=== PATIENT | female | born 1990 | race Caucasian/White ===

== ENCOUNTER 2018-02-08 01:37 | Emergency (ER) | payer SELFPAY ==
[2018-02-08 01:45] VITALS: BP 114/68
--- NOTE | 2018-02-08 02:23 | EDM.PDOC ---
ED HPI GENERAL MEDICAL PROBLEM - General Chief Complaint: General Stated Complaint: sore throat, headache, weakness, fatigue Time Seen by Provider: 02/08/18 02:10 Source of Information: Reports: Patient History Limitations: Reports: No Limitations - History of Present Illness INITIAL COMMENTS - FREE TEXT/NARRATIVE: Patient is a 27-year-old female who is seen in the emergency room with chief complaint of sore throat and diarrhea patient has had diarrhea for a while states that it came with the flu lasted about 2 weeks now her main complaint is sore throat and feeling weak with a headache Onset: Gradual Duration: Week(s):, Waxing/Waning Location: Reports: Head, Face, Neck Quality: Reports: Ache, Pressure Severity: Mild Improves with: Reports: 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, Rest Worsens with: Reports: Movement Context: Reports: Other (6) 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, 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 throat Pain Score (Numeric/FACES): 6 - Related Data Allergies Allergy/AdvReac Type Severity Reaction Status Date / Time No Known Allergies Allergy Verified 02/08/18 01:45 Home Meds: Home Meds Multivitamin [Multivitamins] 1 each PO DAILY 02/08/18 [History] 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 (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 Below) Other OB/BYN History: D and C 2009 - Past Surgical History HEENT Surgical History: Reports: Tonsillectomy Social & Family History - Tobacco Use Smoking Status *Q: Current Every Day Smoker Years of Tobacco use: 16 Packs/Tins Daily: 1 Used Tobacco, but Quit: No - Caffeine Use Caffeine Use: Reports: Coffee, Soda - Alcohol Use Days Per Week of Alcohol Use: 3 Number of Drinks Per Day: 5 Total Drinks Per Week: 15 - Recreational Drug Use Recreational Drug Use: No - Living Situation & Occupation Living situation: Reports: , with Family Occupation: Employed ED ROS GENERAL - Review of Systems Review Of Systems: See Below Constitutional: Reports: No Symptoms HEENT: Reports: No Symptoms Respiratory: Reports: No Symptoms, Cough Cardiovascular: Reports: No Symptoms Endocrine: Reports: No Symptoms GI/Abdominal: Reports: No Symptoms : Reports: No Symptoms Musculoskeletal: Reports: No Symptoms Skin: Reports: No Symptoms Neurological: Reports: No Symptoms Psychiatric: Reports: No Symptoms Hematologic/Lymphatic: Reports: No Symptoms Immunologic: Reports: No Symptoms ED EXAM, GENERAL - Physical Exam Exam: See Below Exam Limited By: No Limitations General Appearance: Alert, WD/WN, No Apparent Distress Ears: Normal External Exam, Normal Canal, Hearing Grossly Normal, Normal TMs Ear Exam: Bilateral Ear: Auricle Normal, Canal Normal, TM normal Nose: Normal Inspection, Normal Mucosa, No Blood Throat/Mouth: Normal Inspection, Normal Lips, Normal Teeth, Normal Gums, Normal Oropharynx, Normal Voice, No Airway Compromise Head: Atraumatic, Normocephalic Neck: Normal Inspection, Supple, Non-Tender, Full Range of Motion Respiratory/Chest: No Respiratory Distress, No Accessory Muscle Use, Decreased Breath Sounds, Wheezing, Prolonged Expiration Cardiovascular: Normal Peripheral Pulses, Regular Rate, Rhythm, No Edema, No Gallop, No JVD, No Murmur, No Rub GI/Abdominal: Normal Bowel Sounds, Soft, Non-Tender, No Organomegaly, No Distention, No Abnormal Bruit, No Mass (Female) Exam: Deferred Rectal (Female) Exam: Deferred Back Exam: Normal Inspection, Full Range of Motion, NT Extremities: Normal Inspection, Normal Range of Motion, Non-Tender, Normal Capillary Refill, No Pedal Edema Neurological: Alert, Oriented, CN II-XII Intact, Normal Cognition, Normal Gait, Normal Reflexes, No Motor/Sensory Deficits Psychiatric: Normal Affect, Normal Mood Course - Vital Signs Last Recorded V/S: Last Vital Signs Temp 97.8 F 02/08/18 01:40 Pulse 85 02/08/18 01:40 Resp 16 02/08/18 01:40 BP 114/68 02/08/18 01:40 Pulse Ox 99 02/08/18 01:40 - Orders/Labs/Meds Orders: Active Orders 24 hr Category Date Time Status RT Aerosol Therapy [RC] ASDIRECTED Care 02/08/18 02:29 Active CULTURE STREP A CONFIRMATION [] Stat Lab 02/08/18 01:56 Results STREP SCRN A RAPID W CULT CONF [] Stat Lab 02/08/18 01:56 Ordered Labs: Laboratory Tests 02/08/18 02/08/18 Range/Units 02:05 02:05 WBC 10.0 (4.0-10.2) K/uL RBC 3.97 (3.77-5.09) M/uL Hgb 11.7 (11.7-15.5) g/dL Hct 36.9 (34.0-46.0) % MCV 92.9 (84.0-98.0) fL MCH 29.5 (28.2-33.3) pg MCHC 31.7 (31.7-36.0) g/dL RDW 13.0 (11.2-14.1) % Plt Count 262 (150-350) K/uL Neut % (Auto) 57.7 (45.0-80.0) % Lymph % (Auto) 34.8 (10.0-50.0) % Price % (Auto) 6.8 (2.0-14.0) % Eos % (Auto) 0.4 (0.0-5.0) % Baso % (Auto) 0.3 (0.0-2.0) % Neut # (Auto) 5.74 (1.40-7.00) K/uL Lymph # (Auto) 3.47 (0.50-3.50) K/uL Price # (Auto) 0.68 (0.00-1.00) K/uL Eos # (Auto) 0.04 (0.00-0.50) K/uL Baso # (Auto) 0.03 (0.00-0.20) K/uL Sodium 141 (136-145) mmol/L Potassium 3.8 (3.5-5.1) mmol/L Chloride 105 (98-107) mmol/L Carbon Dioxide 27.6 (21.0-32.0) mmol/L BUN 9 (7-18) mg/dL Creatinine 0.73 (0.51-1.17) mg/dL Est Cr Clr Drug Dosing 100.84 mL/min Estimated GFR (MDRD) > 60 mL/min Glucose 106 (74-106) mg/dL Calcium 8.5 (8.5-10.1) mg/dL Meds: Medications Discontinued Medications Generic Name Dose Route Start Last Admin Trade Name Freq PRN Reason Stop Dose Admin Albuterol/Ipratropium 3 ml 02/08/18 02:28 02/08/18 02:38 Duoneb 3.0-0.5 Mg/3 Ml NEB 02/08/18 02:29 3 ml ONETIME ONE Administration Departure - Departure Time of Disposition: 02:32 Disposition: Home, Self-Care 01 Condition: Fair Clinical Impression: Bronchitis, Asthma - Discharge Information Instructions: Azithromycin tablets, Albuterol; Ipratropium solution for inhalation Referrals: Jeanine Villasenor [employer]CHO[employer] TECHNICIAN [Primary Care Provider] - Forms: ED Department Discharge Care Plan Goals: Patient will be started on Combivent 2 puffs every 6 hours plus Zithromax 500 mg once a day for 3 days patient will return to work on the - My Orders Last 24 Hours: My Active Orders 02/08/18 01:56 CULTURE STREP A CONFIRMATION [RM] Stat STREP SCRN A RAPID W CULT CONF [RM] Stat 02/08/18 02:29 RT Aerosol Therapy [RC] ASDIRECTED - Assessment/Plan Last 24 Hours: My Active Orders 02/08/18 01:56 CULTURE STREP A CONFIRMATION [RM] Stat STREP SCRN A RAPID W CULT CONF [RM] Stat 02/08/18 02:29 RT Aerosol Therapy [RC] ASDIRECTED
[2018-02-08 02:24] LABS: CHLORIDE,CL 105 mmol/L (98-107); SODIUM,NA 141 mmol/L (136-145)
[2018-02-08] MEDS ORDERED: Albuterol/Ipratropium 3.0-0.5 MG/3 ML Neb Soln NEB ONE (02:28)
== END 2018-02-08 03:00 | disposition home or self-care (01) ==
LOC: LL.ED 01:37
DX: J45.909 Unspecified asthma, uncomplicated (principal); F17.210 Nicotine dependence, cigarettes, uncomplicated
CPT/HCPCS: 36415; 80048; 85025; 87081; 87430; 99283

== ENCOUNTER 2018-11-15 23:09 | Emergency (ER) | payer BC, OTHER ==
[2018-11-15 23:19] VITALS: BP 118/71
--- NOTE | 2018-11-16 | EDM.PDOC ---
ED HPI GENERAL MEDICAL PROBLEM - General Chief Complaint: General Stated Complaint: rt rib pain, sob Time Seen by Provider: 11/15/18 23:20 Source of Information: Reports: Patient History Limitations: Reports: No Limitations - History of Present Illness INITIAL COMMENTS - FREE TEXT/NARRATIVE: Patient is a 28-year-old female who is seen in the ER with chief complaint of right lower lip. 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 - Past Surgical History HEENT Surgical History: Reports: Tonsillectomy Social & Family History - Caffeine Use Caffeine Use: Reports: Coffee, Soda - Living Situation & Occupation Living situation: Reports: , with Family Occupation: Employed ED ROS GENERAL - Review of Systems Review Of Systems: See Below Constitutional: Reports: No Symptoms HEENT: Reports: No Symptoms Respiratory: Reports: Other (Pain with movement) Cardiovascular: Reports: No Symptoms Endocrine: Reports: No Symptoms GI/Abdominal: Reports: No Symptoms : Reports: No Symptoms Musculoskeletal: Reports: No Symptoms Skin: Reports: No Symptoms Neurological: Reports: No Symptoms Psychiatric: Reports: No Symptoms ED EXAM, GENERAL - Physical Exam Exam: See Below Exam Limited By: No Limitations General Appearance: Alert, WD/WN, No Apparent Distress Ears: Normal External Exam, Normal Canal, Hearing Grossly Normal, Normal TMs Nose: Normal Inspection, Normal Mucosa, No Blood Throat/Mouth: Normal Inspection, Normal Lips, Normal Teeth, Normal Gums, Normal Oropharynx, Normal Voice, No Airway Compromise Head: Atraumatic, Normocephalic Neck: Normal Inspection, Supple, Non-Tender, Full Range of Motion Respiratory/Chest: No Respiratory Distress, Other Cardiovascular: Normal Peripheral Pulses (Tenderness with movement), Regular Rate, Rhythm, No Edema, No Gallop, No JVD, No Murmur, No Rub GI/Abdominal: Normal Bowel Sounds, Soft, Non-Tender, No Organomegaly, No Distention, No Abnormal Bruit, No Mass (Female) Exam: Normal External Exam, Deferred Rectal (Female) Exam: Deferred Back Exam: Normal Inspection, Full Range of Motion, NT Extremities: Normal Inspection, Normal Range of Motion, Non-Tender, Normal Capillary Refill, No Pedal Edema Neurological: Alert, Oriented, CN II-XII Intact, Normal Cognition, Normal Gait, Normal Reflexes, No Motor/Sensory Deficits Psychiatric: Normal Affect, Normal Mood Skin Exam: Warm, Dry, Intact, Normal Color, No Rash Lymphatic: No Adenopathy Course - Vital Signs Last Recorded V/S: Last Vital Signs Temp 98.8 F 11/15/18 23:15 Pulse 87 11/15/18 23:15 Resp 20 11/15/18 23:15 BP 118/71 11/15/18 23:15 Pulse Ox 98 11/15/18 23:15 - Orders/Labs/Meds Orders: Active Orders 24 hr Category Date Time Status Ribs 2V w Chest Rt [CR] Stat Exams 11/15/18 23:32 Taken Departure - Departure Time of Disposition: 00:22 Disposition: Home, Self-Care 01 Clinical Impression: Chest wall pain - Discharge Information *PRESCRIPTION DRUG MONITORING PROGRAM REVIEWED*: No *COPY OF PRESCRIPTION DRUG MONITORING REPORT IN PATIENT MARI: No Instructions: Cyclobenzaprine tablets, Muscle Strain, [id number], Ketorolac tablets Referrals: Taty Marsh PA-C [Primary Care Provider] - Forms: ED Department Discharge Care Plan Goals: Patient will be sent home on Flexeril and Toradol for pain she is to follow-up with primary if not better encouraged deep breathing and coughing - My Orders Last 24 Hours: My Active Orders 11/15/18 23:32 Ribs 2V w Chest Rt [CR] Stat - Assessment/Plan Last 24 Hours: My Active Orders 11/15/18 23:32 Ribs 2V w Chest Rt [CR] Stat
== END 2018-11-16 00:45 | disposition home or self-care (01) ==
LOC: LL.ED 23:09
DX: R07.89 Other chest pain (principal)
CPT/HCPCS: 71101-RT; 99283

== ENCOUNTER 2019-12-10 20:49 | Emergency (ER) | payer BC, MEDICAID ==
[2019-12-10 21:18] VITALS: BP 110/57; PULSE 93
--- NOTE | 2019-12-10 21:36 | EDM.PDOC ---
ED HPI GENERAL MEDICAL PROBLEM - General Chief Complaint: Respiratory Problem Stated Complaint: cough, fever Time Seen by Provider: 12/10/19 21:10 Source of Information: Reports: Patient History Limitations: Reports: No Limitations - History of Present Illness INITIAL COMMENTS - FREE TEXT/NARRATIVE: Patient presents with complaint of cough/fever/body aches/fatigue that started this morning. Has taken Aleve. 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 Endocrine/Metabolic History: Reports: Obesity/BMI 30+ - Past Surgical History HEENT Surgical History: Reports: Tonsillectomy Social & Family History - Tobacco Use Smoking Status *Q: Current Every Day Smoker Smoking Cessation Information Provided To Patient: Patient Refused - Caffeine Use Caffeine Use: Reports: Coffee, Soda - Recreational Drug Use Recreational Drug Use: No Drug Use in Last 12 Months: No - Living Situation & Occupation Living situation: Reports: , with Family Occupation: Employed ED ROS GENERAL - Review of Systems Review Of Systems: See Below Constitutional: Reports: Fever, Fatigue. Denies: Diaphoresis HEENT: Reports: Rhinitis. Denies: Ear Pain, Throat Pain, Throat Swelling, Vision Change Respiratory: Reports: Cough. Denies: Shortness of Breath, Wheezing, Pleuritic Chest Pain, Sputum, Hemoptysis Cardiovascular: Reports: No Symptoms GI/Abdominal: Reports: No Symptoms : Reports: No Symptoms Musculoskeletal: Reports: Other (generalized body aches) Skin: Reports: No Symptoms Neurological: Reports: No Symptoms Psychiatric: Reports: No Symptoms Hematologic/Lymphatic: Reports: No Symptoms ED EXAM, GENERAL - Physical Exam Exam: See Below Exam Limited By: No Limitations General Appearance: Alert, No Apparent Distress, Obese, Other (intermittent cough/nonproductive/nasal congestion) Eye Exam: Bilateral Eye: EOMI, PERRL Ears: Normal External Exam, Hearing Grossly Normal Nose: No: Nasal Deformity, Nasal Swelling, Nasal Drainage Throat/Mouth: Normal Inspection, Normal Voice, No Airway Compromise Head: Atraumatic, Normocephalic Neck: Normal Inspection, Supple, Non-Tender, Full Range of Motion Respiratory/Chest: No Respiratory Distress, No Accessory Muscle Use, Wheezing ( mild scattered wheezes throughout). No: Crackles, Rales, Rhonchi, Stridor, Pleural Rub, Accessory Muscle Use, Retractions Cardiovascular: Regular Rate, Rhythm, No Murmur GI/Abdominal: Normal Bowel Sounds, Soft, Non-Tender, No Distention (Female) Exam: Deferred Rectal (Female) Exam: Deferred Back Exam: No: CVA Tenderness (L), CVA Tenderness (R), Muscle Spasm Extremities: Normal Inspection Neurological: Alert, Normal Cognition, Normal Gait Psychiatric: Normal Affect, Normal Mood Skin Exam: Warm, Dry, Intact, Normal Color Course - Vital Signs Last Recorded V/S: Last Vital Signs Temp 37.2 C 12/10/19 20:50 Pulse 93 12/10/19 20:50 Resp 16 12/10/19 20:50 BP 110/57 L 12/10/19 20:50 Pulse Ox 98 12/10/19 20:50 - Re-Assessments/Exams Free Text/Narrative Re-Assessment/Exam: 12/10/19 21:41 Influenza negative. Suspect acute viral respiratory illness based on history and exam. Precautions reviewed. Work slip given for tomorrow. To follow up as needed if she has worsening problems or no significant improvement by end of week. 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 Encouraged to stop smoking. Rx for new Albuterol inhaler (patient has old one at home she has not used for a long time per self report) in addition to Tessalon Pearles. Departure - Departure Time of Disposition: 21:30 Disposition: Home, Self-Care 01 Condition: Good Clinical Impression: Viral respiratory illness - Discharge Information *PRESCRIPTION DRUG MONITORING PROGRAM REVIEWED*: Not Applicable *COPY OF PRESCRIPTION DRUG MONITORING REPORT IN PATIENT MARI: Not Applicable Prescriptions: Albuterol Sulfate [Proair Hfa] 8.5 gm IH ASDIRECTED PRN #1 hfa.aer.ad PRN Reason: Cough Benzonatate [Tessalon Perle] 100 mg PO ASDIRECTED PRN #40 capsule PRN Reason: Cough Instructions: Viral Respiratory Infection, [id number] Referrals: Taty Marsh PA-C [Primary Care Provider] - Forms: ED Department Discharge, ED Return to Work/School Form Additional Instructions: Use your Albuterol inhaler 1-2 puffs every 4-6 hours to help with chest tightness/cough. Remember that the medicine can rev you up so if you take it late at night it may interfere with sleep. Get rechecked at your clinic Wednesday if you still have fever and feel too ill to return to work. Rest/stay hydrated tomorrow. Ibuprofen or Aleve or Tylenol for fever/aches. Mucinex may be helpful to break up mucus. Rx for Tessalon Perles (cough medicine ) Follow up otherwise as needed if you have further problems or concerns. Sepsis Event Note - Evaluation Sepsis Screening Result: No Definite Risk - Focused Exam Vital Signs: Vital Signs Temp Pulse Resp BP Pulse Ox 12/10/19 20:50 37.2 C 93 16 110/57 L 98 Date Exam was Performed: 12/10/19 Time Exam was Performed: 21:30
== END 2019-12-10 21:43 | disposition home or self-care (01) ==
LOC: LL.ED 20:49
DX: B34.9 Viral infection, unspecified (principal); F17.200 Nicotine dependence, unspecified, uncomplicated; J45.909 Unspecified asthma, uncomplicated; E66.9 Obesity, unspecified
CPT/HCPCS: 87804; 99283

== ENCOUNTER 2022-01-27 18:03 | Emergency (ER) | payer BC, MEDICAID ==
[2022-01-27 18:10] VITALS: BP 111/70; PULSE 72
== END 2022-01-27 18:45 | disposition home or self-care (01) ==
LOC: LL.ED 18:03
DX: S90.31XA Contusion of right foot, initial encounter (principal); E66.9 Obesity, unspecified; Z68.37 Body mass index [BMI] 37.0-37.9, adult; W18.49XA Other slipping, tripping and stumbling without falling, initial encounter
CPT/HCPCS: 73630-RT; 99283; 99283-25